=== PATIENT | female | born 1985 | race Caucasian/White ===

== ENCOUNTER 2016-03-16 12:36 | Emergency (ER) | payer SELFPAY ==
[~2016-03-16] VITALS: Ht 154.9 cm; Wt 58.0 kg
[~2016-03-16 12:36] MED LIST: MTRUNK; PRCUNK
[2016-03-16 12:43] VITALS: TEMP 36.7; Ht 154.9 cm; Wt 58.0 kg
[2016-03-16] MEDS ORDERED: XYLOCAINE 1%/SOD BICARB 20 ML VIAL INFIL ONE (13:15)
[2016-03-16] MEDS ORDERED: HYDR-5688 PO (14:24)
[2016-03-16] MEDS ORDERED: SULF800T23 PO (14:24)
--- NOTE | 2016-03-16 14:25 | EMERGENCY ROOM VISIT NOTE ---
History First contact with patient: 12:50 Chief Complaint: WOUND INFECTION Stated Complaint: LARGE BOIL Nursing Triage Summary: pt here with right labial abcess x a few days. pt states it is becoming larger and is tender History of Present Illness The patient is a 30 year old female who presents to the Emergency Room with complaints of an abscess of her right labia. She reports that she first noticed pain and swelling 4 days ago. She has had these abscesses before and states that they usually drain on their own at home. She has been using warm compresses without relief. She rates her discomfort an 8/10. She denies any fevers/chills or abnormal vaginal discharge. She denies any urinary symptoms. She's been taking ibuprofen and Tylenol at home for pain. Review of Systems A complete 10-point Review of Systems was discussed with the patient, with pertinent positives and negatives listed in the History of Present Illness. All remaining Review of Systems questions can be considered negative unless otherwise specified. Social History Smoking Status: Current Every Day Smoker Current/Historical Medications Scheduled Sulfa/Trimethoprim (Bactrim Ds 800MG/160MG), 1 TAB PO BID Scheduled PRN Hydrocodone/Acetaminophen 5MG/325MG (Houstonia 5MG/325MG), 1-2 TABLET PO Q4H PRN for Pain Allergies Coded Allergies: No Known Allergies (Verified , 03/16/16) Physical Exam Vital Signs Date Time Temp Pulse Resp B/P Pulse Ox O2 Delivery O2 Flow Rate FiO2 03/16/16 14:35 90 18 120/79 98 Room Air 03/16/16 12:43 36.7 79 16 122/74 100 Room Air Physical Exam VITALS: Vitals are noted on the nurse's note and reviewed by myself. Vital signs stable. GENERAL: This is a 30-year-old female, in no acute distress, nondiaphoretic, well-developed well-nourished. HEART: Regular rate and rhythm without murmurs gallops or rubs. LUNGS: Clear to auscultation bilaterally without wheezes, rales or rhonchi. GENITALS: There is an area of erythema, induration and warmth which measures approximately 3 cm in diameter of the right labia. There is mild surrounding cellulitis. There is no lymphangitic streaking. There is fluctuance, but no pointing or drainage. NEURO: Patient was alert and oriented to person place and time. Medical Decision & Procedures Procedure I examined the patient. Verbal consent was obtained to perform the procedure. After saline and Betadine cleansing and 4 mL of 1% buffered lidocaine anesthesia , the abscess was incised with a number 11 scalpel blade. A large amount of purulent material was released with more expressed by pressure. A swab was obtained for culture. The abscess cavity was further probed with a needle [employer] and the deep pocket expressed. The abscess cavity was then copiously irrigated with sterile saline under pressure. The area was then packed with bacitracin soaked packing. The area was cleaned with sterile saline and dressed with bacitracin and a bulky bandage. The patient tolerated the procedure well. Medical Decision Differential diagnosis includes abscess, cellulitis, Dominic's gangrene, among others. The patient was evaluated as above. She has a right labial abscess. Incision and drainage was performed as noted in the procedure section above. Culture Is pending. The patient was placed on Bactrim. She will return for packing removal or for worsening symptoms. She verbalized understanding and was discharged home in good condition. [place] Drug Monitoring Program Search Results: patient reviewed within database, no issues identified Impression Primary Impression: Labial abscess Departure Information Dispostion Home / Self-Care Condition GOOD Prescriptions Sulfa/Trimethoprim (Bactrim Ds 800MG/160MG) Tab 1 TAB PO BID for 7 Days, #14 TAB Prov: Celia Burgos PA-C 03/16/16 Hydrocodone/Acetaminophen 5MG/325MG (Houstonia 5MG/325MG) Tab 1-2 TABLET PO Q4H Y for Pain, #10 TAB For Initial Treatment Prov: Celia Burgos PA-C 03/16/16 Referrals Julian Muhammad M.D. (PCP) Patient Instructions My [facility] Additional Instructions You were seen in the Emergency Department for Incision and Drainage of your labial abscess. You will NEED to return to the Emergency Department to have the packing removed/changed in 48 hours. This packing is NOT dissolvable and WILL need to be removed by a health care provider. Try to leave the packing in place until you return to the Emergency Department. You have been prescribed [place]ia to be used for pain control. This is a narcotic medication. You cannot drive or consume alcohol while on this medicine. This medicine should only be used for pain that cannot be controlled with over-the- counter pain medicines. You were prescribed Bactrim to be taken as prescribed. Both of these medications are antibiotics. Stop these medications and contact a medical provider if you were to develop any significant adverse side effects including: wheezing, shortness of breath, passing out, vomiting, or a diffuse rash. Always take antibiotics as directed and COMPLETE the ENTIRE course regardless of the improvement of your symptoms. Proper wound care is essential for adequate wound healing and infection prevention. You can shower and clean the wound with soap and water. Do not scour over the wound. Pat dry with a towel. Do not submerse the wound (i.e. bathe or dish wash) until the sutures have been removed. You can use an antibiotic ointment with a dressing over the wound for the next 3-4 days. After this time you may leave the wound dry and open to the air. If crust develops over the wound you can use a Q-tip to apply a 1:1 peroxide:water solution to clean the wound. Look for signs of infection of the wound including: increased pain, swelling, foul discharge, streaking, or increased temperature. If any of these are noticed you should return to the Emergency Department for further assessment and treatment. As with any laceration you may have received nerve damage to the surrounding tissues. This damage may or may not be permanent. For pain control, you can use the following [id number] medicines (if >12 yo): - Regular strength (325mg/tab) Tylenol (acetaminophen) 2 tabs every 4-6 hours as needed. Do not exceed 12 tablets in a 24 hour period. Avoid taking more than 4 grams (4000 mg) of Tylenol per day. This includes any other sources of acetaminophen you may take on a regular basis. - Regular strength (200 mg/tab) Advil (ibuprofen) 1-2 tabs every 4-6 hours as needed. Do not exceed a dose of 3200 mg per day. Return to the emergency department if your symptoms worsen despite treatment course outlined above.
[2016-03-16 14:35] VITALS: BP 120/79; PULSE 90; O2SAT 98
--- NOTE | 2016-03-18 12:16 | Pharmacy Progress Note ---
ED Pharmacist Culture FollowUp Date of Service: Mar 18, 2016. Patient's groin abscess (R labial abscess) culture finalized today. The culture is growing both CoN Staph and Diptheroids, both of which will not have sensitivities reported. Both organisms can colonize human skin. The patient had been discharged on Bactrim DS BID x 7 days. Without sensitivities we cannot target ABX therapy to organism, however Bactrim is a reasonable choice. I contacted the patient via phone today ([phone]) for a clinical checkup. Patient states she is doing well, the wound is not draining and is not painful or red. She feels that it is healing nicely. Plan is to finish current ABX course.
== END 2016-03-16 14:38 | disposition home or self-care (01) ==
LOC: C.EDB 12:38 → C.EDA 14:38
DX: N76.4 Abscess of vulva (principal); F17.210 Nicotine dependence, cigarettes, uncomplicated